=== PATIENT | male | born 1955 | race Caucasian/White ===

== ENCOUNTER 2023-06-26 12:49 | Outpatient (CLI) | payer MEDICARE, OTHER ==
[2023-06-26] MEDS ORDERED: Iopamidol 370 76% 100 ML VIAL ONE (13:54)
== END 2023-06-26 12:50 | disposition home or self-care (01) ==
LOC: CT 12:49
PROVIDERS: ATTEND Nurse Practitioner Family
DX: H34.9 Unspecified retinal vascular occlusion (principal); I65.21 Occlusion and stenosis of right carotid artery; I70.8 Atherosclerosis of other arteries
CPT/HCPCS: 70496; 70498; Q9967

== ENCOUNTER 2024-10-24 07:56 | Emergency (ER) | payer MEDICARE, OTHER ==
[2024-10-24 08:41] LABS: #Basophils 0.07 10x3/uL (0.0-0.2); #Eosinophils Less than 0.03 10x3/uL (0.0-0.7); #Monocytes 1.47 10x3/uL (0.11-0.59); #Neutrophils 14.65 10x3/uL (1.40-6.50); %Basophils 0.4 % (0.0-1.0); %Eosinophils 0.1 % (0.0-10.0); %Lymphocytes 6.9 % (21.0-51.0); %Monocytes 8.4 % (0.0-10.0); %Neutrophils 83.7 % (42.0-75.0); Hematocrit 46.3 % (42.0-52.0); Hemoglobin 15.2 g/dL (14.0-18.0); Mean Corpuscular HGB CONC 32.8 g/dL (32.0-36.0); Mean Corpuscular Hemoglobin 30.2 pg (27.0-31.0); Mean Corpuscular Volume 91.9 fL (78.0-98.0); Mean Platelet Volume 12.1 fL (7.4-10.4); Platelet Count 142 10x3/uL (130-400); RBC Distribution Width 13.7 % (11.5-14.5); Red Blood Cell (RBC) Count 5.04 mill/uL (4.70-6.10)
[2024-10-24] MEDS ORDERED: Ketorolac Tromethamine 30 MG (1 mL) VIAL ONE (08:46)
[2024-10-24] MEDS ORDERED: Acetaminophen 500 MG TAB ONE (08:46)
[2024-10-24] MEDS ORDERED: Morphine 2 MG/ML VIAL ONE (08:47)
[2024-10-24 08:54] LABS: Bilirubin Negative (Negative); Blood, Urine 3+ (Negative); CAUTI Indications for Culture Pelvic or flank pain; Clarity Extra Turbid (Clear); Glucose, Urine (Dipstick) Normal (Negative); Ketone, Urine Negative (Negative); Leukocyte 500 Leu/uL (Negative); Nitrite 2+ (Negative); Protein, Urine (Dipstick) 70 mg/dL (Neg-Trace); Specific Gravity, Urine 1.013 (1.002-1.036); Squamous Epithelial None Seen HPF (0-3); Urobilinogen Normal mg/dL (Less than 2); WBC/HPF Greater than 50 HPF (0-3)
[2024-10-24 08:56] LABS: PTT 26.2 sec (22.9-36.1); Prothrombin Time 13.2 sec (12.0-14.7)
[2024-10-24 08:57] LABS: ALT (SGPT) 20 U/L (Less than 45); AST (SGOT) 18 U/L (11-34); Albumin 4.4 g/dL (3.1-4.5); Alkaline Phosphatase 85 U/L (40-110); Anion Gap 15 mmol/L (10-20); BUN (Urea Nitrogen) 14 mg/dL (8.4-25.7); Bilirubin, Total 1.1 mg/dL (0.3-1.2); Calc. Creatinine Clearance 0 mL/min (70-130); Calcium 10.1 mg/dL (7.8-10.44); Carbon Dioxide 22 mmol/L (23-31); Chloride 102 mmol/L (98-107); Estimated GFR 58; Globulin 3.7 g/dL (2.4-3.5); Glucose 122 mg/dL (83-110); Potassium 5.3 mmol/L (3.5-5.1); Protein, Total 8.1 g/dL (5.8-8.1); Sodium 134 mmol/L (136-145)
[2024-10-24 09:02] LABS: Bacteria/HPF 3+ HPF (None Seen)
[2024-10-24 09:03] LABS: Urine Culture Reflex Yes Yes
[2024-10-24] MEDS ORDERED: cefTRIAXone (ROCEPHIN) 2 GM VIAL ONE (09:36)
[2024-10-24] MEDS ORDERED: Sodium Chloride 0.9% 100 ML ONE (09:36)
[2024-10-24 11:22] LABS: Lactic Acid 1.04 mmol/L (0.50-2.20)
== END 2024-10-24 12:03 | disposition home or self-care (01) ==
LOC: ERS 07:56
DX: N45.2 Orchitis (principal); I10 Essential (primary) hypertension; E78.5 Hyperlipidemia, unspecified; Z55.6 Problems related to health literacy
CPT/HCPCS: 76870; 80053; 81001; 83605; 85025; 85610; 85730; 87040; 87077; 87086; 87186; 93976; 96374; 96375; 99284; J0696; J1885; J2272; 36415